=== PATIENT | male | born 1950 | race Caucasian/White ===

== ENCOUNTER 2019-09-04 07:20 | Inpatient (IN) | payer BC, OTHER, MEDICARE ==
[2019-08-30 12:32] LABS: BASOPHILS # (AUTO) 0.1 (0.0-0.1); BASOPHILS % 0.8 % (0.0-1.0); EOSINOPHILS # (AUTO) 0.2 (0.0-0.4); EOSINOPHILS % 3.6 % (0.0-6.0); HEMATOCRIT 39.6 % (38.2-49.6); HEMOGLOBIN 13.1 g/dL (14.0-18.0); LYMPHOCYTES # (AUTO) 1.3 (1.0-3.2); LYMPHOCYTES % 20.4 % (18.0-39.1); MEAN CORPUSCULAR HEMOGLOBIN 29.1 pg (28-32); MEAN CORPUSCULAR HGB CONC 33.1 g/dL (31-35); MONOCYTES # (AUTO) 0.7 (0.2-0.8); MONOCYTES % 10.3 % (4.4-11.3); NEUTROPHILS # (AUTO) 4.2 (2.1-6.9); NEUTROPHILS % 64.6 % (38.7-80.0); PLATELET COUNT 270 x10e3/uL (140-360); RED CELL DISTRIBUTION WIDTH 13.5 % (11.7-14.4)
--- NOTE | 2019-08-30 12:49 | Diagnostic Imaging Report ---
X-ray chest PA and lateral Comparison: None History: Preop Findings: Central airways unremarkable. Heart size normal. Atherosclerotic but otherwise normal caliber aorta. Slight blunting of the right costophrenic angle but no definite large pleural effusion. No pneumothorax. Linear opacity right lung apex likely represents right apical lung scar. No acute focal lung disease. Low flat diaphragms. Degenerative changes of the thoracic spine. Impression: No acute cardiopulmonary disease. Possible emphysema. Signed by: Srinivas Tse MD on 08/30/2019 12:46 PM
[2019-08-30 12:59] LABS: BLOOD UREA NITROGEN 9 mg/dL (7-26); BUN/CREATININE RATIO 10 (6-25); CALCIUM 9.1 mg/dL (8.4-10.2); CARBON DIOXIDE 26 mmol/L (22-29); CHLORIDE 95 mmol/L (98-107); CREATININE, SERUM 0.93 mg/dL (0.72-1.25); EST GLOMERULAR FILTRATION RATE > 60 ML/MIN (60-); GLUCOSE 87 mg/dL (74-118); SODIUM 131 mmol/L (136-145)
[~2019-09-04] VITALS: Ht 165.1 cm; Wt 63.5 kg
[~2019-09-04 07:20] MED LIST: ECOTRIN81 MG PO; FLOMAX0.4 MG PO; LIPITOR20 MG PO; LISINOPRIL-HCT1 EAC1 PO; PROVENTIL HFA6.7 GM INH; STIOLTO RESPIMAT4 GM INH
[2019-09-04] MEDS ORDERED: GENTAMICIN 80MG/NS 100 ML 200 ML IV ONE (07:34)
[2019-09-04] MEDS ORDERED: SODIUM CHLORIDE 0.9% 1000ML 1,000 ML ONE (07:34)
[2019-09-04] MEDS ORDERED: PIPER-TAZ 3.375 GM 50 ML ONE (07:34)
[2019-09-04] MEDS ORDERED: B&O 60MG R/S 60 MG SUPP PR ONE (10:39)
[2019-09-04] MEDS ORDERED: IOPAMIDOL 300MG/ML 50ML INFUS..BTL IV ONE (10:39)
[2019-09-04] MEDS ORDERED: SUGAMMADEX SODIUM 200 MG/2 ML VIAL IV ONE (12:36)
[2019-09-04] MEDS ORDERED: FENTANYL CITRATE/PF 100MCG/2 ML INJ ONE ×2 (12:59→15:48)
[2019-09-04] MEDS ORDERED: ACETAMINOPHEN/CODEINE 300MG - 30MG TAB PO PRN (13:00)
[2019-09-04] MEDS ORDERED: B&O 60MG R/S 60 MG SUPP PR PRN (13:00)
[2019-09-04] MEDS ORDERED: PHENAZOPYRIDINE HCL 100 MG TAB PO PRN (13:00)
[2019-09-04 14:20] LABS: BASOPHILS % 0.4 % (0.0-1.0); EOSINOPHILS # (AUTO) 0.1 (0.0-0.4); EOSINOPHILS % 0.6 % (0.0-6.0); HEMATOCRIT 36.4 % (38.2-49.6); HEMOGLOBIN 11.9 g/dL (14.0-18.0); LYMPHOCYTES # (AUTO) 0.6 (1.0-3.2); LYMPHOCYTES % 5.5 % (18.0-39.1); MEAN CORPUSCULAR HEMOGLOBIN 29.7 pg (28-32); MEAN CORPUSCULAR HGB CONC 32.7 g/dL (31-35); MEAN CORPUSCULAR VOLUME 90.8 fL (81-99); MONOCYTES # (AUTO) 0.3 (0.2-0.8); MONOCYTES % 2.5 % (4.4-11.3); NEUTROPHILS # (AUTO) 10.1 (2.1-6.9); NEUTROPHILS % 90.6 % (38.7-80.0); PLATELET COUNT 195 x10e3/uL (140-360); RED BLOOD COUNT 4.01 x10e6/uL (4.3-5.7); RED CELL DISTRIBUTION WIDTH 13.6 % (11.7-14.4)
[2019-09-04 14:41] LABS: ANION GAP 11.2 mmol/L (8-16); BLOOD UREA NITROGEN 10 mg/dL (7-26); BUN/CREATININE RATIO 10 (6-25); CALCIUM 7.9 mg/dL (8.4-10.2); CARBON DIOXIDE 22 mmol/L (22-29); CHLORIDE 101 mmol/L (98-107); CREATININE, SERUM 0.98 mg/dL (0.72-1.25); EST GLOMERULAR FILTRATION RATE > 60 ML/MIN (60-); GLUCOSE 137 mg/dL (74-118); POTASSIUM 4.2 mmol/L (3.5-5.1); SODIUM 130 mmol/L (136-145)
[2019-09-04] MEDS ORDERED: MIDAZOLAM HCL 2 MG/2 ML VIAL ONE (15:48)
[2019-09-04 17:12] VITALS: BP 120/62
--- NOTE | 2019-09-04 17:12 | NUR ---
pt arrived to room 102; pt awake, alert, no signs of distress.
[2019-09-04] MEDS ORDERED: ACETAMINOPHEN 1000 MG/100 ML IV PRN (18:00)
[2019-09-04] MEDS: SOD CHL 0.45%/POT CHL 20MEQ 1,000 ML IV SCH ×2 (18:01→21:00)
[2019-09-04] MEDS: PIPERACILLIN/TAZO 2.25 GM 50 ML IV SCH (18:01)
[2019-09-04] MEDS: DOCUSATE SODIUM 100 MG CAP PO SCH (18:01)
[2019-09-04 18:05] VITALS: BP 120/62
[2019-09-04] MEDS ORDERED: EPHEDRINE SULFATE INJ 50 MG/ML VIAL ONE (18:47)
[2019-09-04] MEDS ORDERED: SEVOFLURANE INHAL SOLN 250 ML PEN BTL ONE (18:47)
[2019-09-04] MEDS ORDERED: PROPOFOL IV EMULSION 10 MG/ML 20 ML VIAL ONE (18:47)
[2019-09-04] MEDS ORDERED: DEXAMETHASONE SOD PHOS INJ 4 MG/ML VIAL ONE (18:47)
[2019-09-04] MEDS ORDERED: NEOSTIGMINE 1 MG/ML 10ML VIAL ONE (18:47)
[2019-09-04] MEDS ORDERED: GLYCOPYRROLATE INJ 0.2 MG/ML VIAL ONE (18:47)
[2019-09-04] MEDS ORDERED: ROCURONIUM BROMIDE 10 MG/ML 5ML VIAL IV ONE (18:47)
[2019-09-04] MEDS ORDERED: ONDANSETRON HCL INJ 2MG/ML 2ML 2 MG/ML VIAL ONE (18:47)
--- NOTE | 2019-09-04 19:00 | NUR ---
change of shift report given to PM nurse. pt in stable condition.
[2019-09-04 20:00] VITALS: BP 132/81
[2019-09-04 21:27] VITALS: BP 132/81
[2019-09-05] VITALS (8 sets, daily range): BP systolic 107–148; BP diastolic 61–76
[2019-09-05] MEDS: SOD CHL 0.45%/POT CHL 20MEQ 1,000 ML IV SCH (03:26)
[2019-09-05 04:42] LABS: BASOPHILS % 0.1 % (0.0-1.0); EOSINOPHILS % 0.1 % (0.0-6.0); HEMATOCRIT 34.1 % (38.2-49.6); HEMOGLOBIN 11.3 g/dL (14.0-18.0); LYMPHOCYTES # (AUTO) 0.6 (1.0-3.2); MEAN CORPUSCULAR HEMOGLOBIN 29.1 pg (28-32); MEAN CORPUSCULAR HGB CONC 33.1 g/dL (31-35); MEAN CORPUSCULAR VOLUME 87.9 fL (81-99); MONOCYTES % 8.2 % (4.4-11.3); NEUTROPHILS # (AUTO) 10.6 (2.1-6.9); NEUTROPHILS % 86.1 % (38.7-80.0); PLATELET COUNT 232 x10e3/uL (140-360); RED BLOOD COUNT 3.88 x10e6/uL (4.3-5.7); RED CELL DISTRIBUTION WIDTH 13.8 % (11.7-14.4)
[2019-09-05 05:04] LABS: ANION GAP 13.7 mmol/L (8-16); BLOOD UREA NITROGEN 9 mg/dL (7-26); BUN/CREATININE RATIO 10 (6-25); CALCIUM 8.6 mg/dL (8.4-10.2); CARBON DIOXIDE 26 mmol/L (22-29); CHLORIDE 95 mmol/L (98-107); CREATININE, SERUM 0.91 mg/dL (0.72-1.25); EST GLOMERULAR FILTRATION RATE > 60 ML/MIN (60-); GLUCOSE 116 mg/dL (74-118); POTASSIUM 4.7 mmol/L (3.5-5.1); SODIUM 130 mmol/L (136-145)
[2019-09-05] MEDS: ONDANSETRON HCL INJ 2MG/ML 2ML 2 MG/ML VIAL IV PRN ×2 (05:07→07:53)
[2019-09-05] MEDS: PIPERACILLIN/TAZO 2.25 GM 50 ML IV SCH ×3 (05:07→21:33)
[2019-09-05] MEDS: DOCUSATE SODIUM 100 MG CAP PO SCH ×2 (08:34→16:08)
[2019-09-05] MEDS ORDERED: ONDANSETRON HCL INJ 2MG/ML 2ML 2 MG/ML VIAL IV PRN (09:00)
[2019-09-05] MEDS ORDERED: ALBUTEROL/IPRATROPIUM 3 ML NEB NEB PRN (09:00)
--- NOTE | 2019-09-05 09:27 | History and Physical ---
REASON FOR ADMISSION: The patient admitted after TURP procedure. The patient has baseline COPD, hypertension. HISTORY OF PRESENT ILLNESS: The patient is a 69-year-old male, status post TURP. The patient is getting continuous urinary bladder irrigation. The patient is otherwise comfortable except for some indigestion. The patient does have hypertension and COPD. He also has dyslipidemia. The patient had a PSA that was 11.4 prior to his surgery. Prostate biopsy was done. The patient is otherwise stable at this time. PAST MEDICAL HISTORY: 1. Enlarged prostate. 2. Hypertension. 3. Dyslipidemia. 4. COPD, on an inhaler. 5. Elevated PSA. PAST SURGICAL HISTORY: 1. Status post TURP. 2. Tonsillectomy. 3. Hiatal hernia repair. 4. Eye surgeries. SOCIAL HISTORY: The patient is a smoker. No alcohol consumption. No recreational drugs. ALLERGIES: NO KNOWN ALLERGIES. HOME MEDICATIONS: 1. Proventil. 2. Aspirin. 3. Lipitor. 4. Lisinopril. 5. HCTZ. 6. Flomax. 7. Respimat. PHYSICAL EXAMINATION: VITAL SIGNS: Temperature is 98, blood pressure 107/67, pulse rate 70, respirations 20. GENERAL: The patient is not in acute distress. He is awake. HEENT: Normocephalic and atraumatic. Anicteric. NECK: Supple grossly. PULMONARY: Diminished breath sounds with some rhonchi. CARDIOVASCULAR: S1, S2. Regular rate and rhythm. ABDOMEN: Soft, nontender, non-distention. EXTREMITIES: No gross cyanosis or edema. NEUROLOGIC: No gross focal deficit. The patient has a Carmen catheter in place. The patient is getting continuous urinary bladder irrigation. Hematuria, improving. IMPRESSION: 1. Status post transurethral resection of prostate. 2. Elevation of prostate-specific antigen. 3. Baseline enlarged prostate and urinary retention. 4. Baseline chronic obstructive pulmonary disease. 5. Hypertension. 6. Dyslipidemia. PLAN: Resume home medication. Nebulizer treatment. For indigestion, Maalox. Continue with urinary bladder irrigation. Continue with current medication. We will continue with antibiotics postop. SCD. We will follow up on the patient's status. Incentive spirometry. MD MICHAEL Blake/MODL :46:37 /[id number]
[2019-09-05] MEDS ORDERED: ALBUTEROL SULFATE HFA 8GM INHALATION AEROSOL INH PRN (10:00)
[2019-09-05] MEDS: [UNRECOGNIZED DRUG - OTHER] INH SCH ×2 (10:15→20:10)
[2019-09-05] MEDS: TIOTROPIUM BR INH SCH ×2 (10:15→20:10)
[2019-09-05] MEDS: OLODATEROL HCL INH SCH ×2 (10:15→20:10)
[2019-09-05] MEDS: SODIUM CHLORIDE 0.9% 1000ML 1,000 ML IV SCH ×2 (11:02→20:47)
[2019-09-05] MEDS: LISINOPRIL 20 MG TAB PO SCH (11:02)
[2019-09-05] MEDS: HYDROCHLOROTHIAZIDE 25 MG TAB PO SCH (11:02)
[2019-09-05] MEDS: TAMSULOSIN HCL 0.4 MG CAP PO SCH ×2 (11:02→16:08)
[2019-09-05] MEDS: MAGNESIUM/ALUMINUM/SIMETHICONE 30 ML UDC PO PRN ×2 (16:04→21:33)
[2019-09-05] MEDS: ATORVASTATIN 40 MG TAB PO SCH (20:48)
[2019-09-05] MEDS: DIPHENHYDRAMINE HCL 25 MG CAP PO PRN (20:48)
[2019-09-06] VITALS (7 sets, daily range): BP systolic 102–124; BP diastolic 60–70
[2019-09-06 05:00] LABS: BASOPHILS % 0.2 % (0.0-1.0); EOSINOPHILS % 0.1 % (0.0-6.0); HEMATOCRIT 32.7 % (38.2-49.6); HEMOGLOBIN 11.1 g/dL (14.0-18.0); LYMPHOCYTES # (AUTO) 0.9 (1.0-3.2); LYMPHOCYTES % 6.4 % (18.0-39.1); MEAN CORPUSCULAR HEMOGLOBIN 30.2 pg (28-32); MEAN CORPUSCULAR HGB CONC 33.9 g/dL (31-35); MEAN CORPUSCULAR VOLUME 88.9 fL (81-99); MONOCYTES # (AUTO) 1.3 (0.2-0.8); MONOCYTES % 9.8 % (4.4-11.3); NEUTROPHILS # (AUTO) 11.2 (2.1-6.9); NEUTROPHILS % 83.1 % (38.7-80.0); PLATELET COUNT 242 x10e3/uL (140-360); RED BLOOD COUNT 3.68 x10e6/uL (4.3-5.7); RED CELL DISTRIBUTION WIDTH 13.7 % (11.7-14.4)
[2019-09-06] MEDS: MAGNESIUM/ALUMINUM/SIMETHICONE 30 ML UDC PO PRN (05:07)
[2019-09-06] MEDS: PIPERACILLIN/TAZO 2.25 GM 50 ML IV SCH ×3 (05:12→21:22)
[2019-09-06 05:23] LABS: ANION GAP 11.8 mmol/L (8-16); BLOOD UREA NITROGEN 11 mg/dL (7-26); BUN/CREATININE RATIO 10 (6-25); CALCIUM 8.4 mg/dL (8.4-10.2); CARBON DIOXIDE 30 mmol/L (22-29); CHLORIDE 91 mmol/L (98-107); CREATININE, SERUM 1.05 mg/dL (0.72-1.25); EST GLOMERULAR FILTRATION RATE > 60 ML/MIN (60-); GLUCOSE 106 mg/dL (74-118); POTASSIUM 3.8 mmol/L (3.5-5.1); SODIUM 129 mmol/L (136-145)
[2019-09-06] MEDS: SODIUM CHLORIDE 0.9% 1000ML 1,000 ML IV SCH (06:54)
[2019-09-06] MEDS: OLODATEROL HCL INH SCH ×2 (07:00→19:00)
[2019-09-06] MEDS: [UNRECOGNIZED DRUG - OTHER] INH SCH ×2 (07:00→19:00)
[2019-09-06] MEDS: TIOTROPIUM BR INH SCH ×2 (07:00→19:00)
[2019-09-06] MEDS: LISINOPRIL 20 MG TAB PO SCH (08:21)
[2019-09-06] MEDS: HYDROCHLOROTHIAZIDE 25 MG TAB PO SCH (08:21)
[2019-09-06] MEDS: DOCUSATE SODIUM 100 MG CAP PO SCH ×2 (08:21→16:44)
[2019-09-06] MEDS: TAMSULOSIN HCL 0.4 MG CAP PO SCH ×2 (08:21→16:44)
[2019-09-06] MEDS ORDERED: MAGNESIUM/ALUMINUM/SIMETHICONE 30 ML UDC PO PRN (09:00)
[2019-09-06] MEDS ORDERED: MAGNESIUM/ALUMINUM/SIMETHICONE 30 ML UDC PO ONE (09:45)
[2019-09-06] MEDS: FAMOTIDINE 20 MG/2 ML VIAL IV SCH ×2 (09:56→16:44)
--- NOTE | 2019-09-06 18:59 | NUR ---
WALKING ROUNDS PERFORMED, RECEIVED PT LAYING SEMI FOWLERS IN BED, AAOX3, RR EVEN AND NON-LABORED, ON ROOM AIR. NO S/SX OF DISTRESS NOTED. LEFT PT LAYING SEMI FOWLERS IN BED, BED IN LOW LOCKED POSITION, SIDE RAILS UPX2, CALL LIGHT AND PHONE WITHIN REACH.
--- NOTE | 2019-09-06 21:20 | NUR ---
TA CATHETER CARE PERFORMED WITH X3 CASTILE SOAP WIPES FOR CAUTI PREVENTION.
[2019-09-06] MEDS: ATORVASTATIN 40 MG TAB PO SCH (21:21)
[2019-09-06] MEDS: DIPHENHYDRAMINE HCL 25 MG CAP PO PRN (21:26)
[2019-09-07] VITALS: BP 115/63
[2019-09-07 04:00] VITALS: BP 113/65
[2019-09-07 05:05] LABS: BASOPHILS # (AUTO) 0.1 (0.0-0.1); BASOPHILS % 0.5 % (0.0-1.0); EOSINOPHILS # (AUTO) 0.2 (0.0-0.4); EOSINOPHILS % 1.3 % (0.0-6.0); HEMATOCRIT 30.5 % (38.2-49.6); HEMOGLOBIN 10.3 g/dL (14.0-18.0); LYMPHOCYTES # (AUTO) 1.1 (1.0-3.2); LYMPHOCYTES % 8.3 % (18.0-39.1); MEAN CORPUSCULAR HEMOGLOBIN 29.8 pg (28-32); MEAN CORPUSCULAR HGB CONC 33.8 g/dL (31-35); MEAN CORPUSCULAR VOLUME 88.2 fL (81-99); MONOCYTES # (AUTO) 1.4 (0.2-0.8); MONOCYTES % 10.7 % (4.4-11.3); NEUTROPHILS # (AUTO) 10.2 (2.1-6.9); NEUTROPHILS % 78.5 % (38.7-80.0); PLATELET COUNT 203 x10e3/uL (140-360); RED BLOOD COUNT 3.46 x10e6/uL (4.3-5.7); RED CELL DISTRIBUTION WIDTH 13.9 % (11.7-14.4)
[2019-09-07 05:23] LABS: ANION GAP 11.7 mmol/L (8-16); BLOOD UREA NITROGEN 11 mg/dL (7-26); BUN/CREATININE RATIO 12 (6-25); CALCIUM 7.8 mg/dL (8.4-10.2); CARBON DIOXIDE 27 mmol/L (22-29); CHLORIDE 92 mmol/L (98-107); CREATININE, SERUM 0.94 mg/dL (0.72-1.25); EST GLOMERULAR FILTRATION RATE > 60 ML/MIN (60-); GLUCOSE 91 mg/dL (74-118); POTASSIUM 3.7 mmol/L (3.5-5.1); SODIUM 127 mmol/L (136-145)
[2019-09-07] MEDS: PIPERACILLIN/TAZO 2.25 GM 50 ML IV SCH (05:43)
[2019-09-07] MEDS: OLODATEROL HCL INH SCH (07:00)
[2019-09-07] MEDS: TIOTROPIUM BR INH SCH (07:00)
[2019-09-07] MEDS: [UNRECOGNIZED DRUG - OTHER] INH SCH (07:00)
[2019-09-07 08:02] VITALS: BP 107/63
[2019-09-07 08:24] VITALS: BP 107/63
[2019-09-07] MEDS: FAMOTIDINE 20 MG/2 ML VIAL IV SCH (08:30)
[2019-09-07] MEDS: DOCUSATE SODIUM 100 MG CAP PO SCH (08:30)
[2019-09-07] MEDS: TAMSULOSIN HCL 0.4 MG CAP PO SCH (08:30)
[2019-09-07 11:42] VITALS: BP 128/68
[2019-09-07] MEDS ORDERED: COLACE100 MG PO (15:06)
[2019-09-07] MEDS ORDERED: ZOFRAN8 MG PO (15:06)
[2019-09-07] MEDS ORDERED: MAALOX MAXIMUM355 ML PO (15:07)
[2019-09-07] MEDS ORDERED: LEVOFLOXACIN250 MG PO (15:08)
[2019-09-07] MEDS ORDERED: TYLENOL # 31 EA PO (15:08)
--- NOTE | 2019-09-07 15:12 | NUR ---
pt catheter changed to leg bag. way care and ayaka care taught to pt.
--- NOTE | 2019-09-07 20:48 | Discharge Summary ---
TILE DITCHER: Dr. Gonzalez Gruber. FINAL DIAGNOSES: 1. Status post TURP. 2. Status post prostate biopsy. 3. Resolved leukocytosis. 4. Hypertension, stable. 5. Reflux history. SUMMARY: The patient is a 69-year-old male, came into the hospital after a TURP procedure. The patient required continuous urinary bladder irrigation. The patient did better. On admission, the patient is post TURP procedure. His WBC is trending upward from 11,000 to 12,000, to 13,000. Today, however, it is trending down at 12.9 thousand. The patient is otherwise stable. The patient is comfortable. He has been ambulatory, able to eat and have bowel movement. The patient's pathology on the prostate biopsy on showed no malignancy tissue. The patient is stable. He will be going home today with a Carmen catheter. A Carmen catheter to leg will be given. The patient will continue with his home medication. Medication for reflux and GERD. He will take Tylenol No.3 for pain and Levaquin 250 mg daily for 7 days. The patient to follow up with Dr. Gonzalez Gruber as per his instruction. The patient is stable at this time, discharge today. MD MICHAEL Blake/EVELYN /[id number]
--- OUTSIDE RECORDS SUMMARY | 2019-09-20 11:45 | XMS REPORT | Continuity of Care Document ---
Author Author [facility] t Organization [facility] Address [address] [place] [address] Phone Unavailable Care Team Providers Care Building Maintenance Worker Name Role Phone NO, PCP PCP Unavailable HAMPEL, JOHNSON Attphys Unavailable Payers Payer Name Policy Type Policy Number Effective Date Expiration Date Kristy Fox [place] [id number] 2019 00:00:00 [facility] Ppo [id number] 2019 00:00:00 [facility] Medicare A & B [id number] 2014 00:00:00 [facility] Cdc Review Covid19 [id number] [facility] Problems Condition Name Condition Details Condition Category Status Onset Date Resolution Date Last Treatment Date Treating Clinician Comments Source Problem Condition Active [facility] Allergies, Adverse Reactions, Alerts Allergy Name Allergy Type Status Severity Reaction(s) Onset Date Inacti ve Date Treating Clinician Comments Source No Known Allergies DA Active U 2016-05-18 00:00:00 [facility] Social History Social Habit Start Date Stop Date Quantity Comments Source Sex Assigned At 1950 00:00:00 1950 00:00:00 Male [facility] Medications Ordered Medication Name Filled Medication Name Start Date Stop Da te Current Medication? Ordering Clinician Indication Dosage Frequency Signature (SIG) Comments Components Source Acetaminophen/Codeine Phosphate (Tylenol # 3*) 1 Ea TA B Acetaminophen/Codeine Phosphate (Tylenol # 3*) 1 Ea TAB Yes Every 4 Hours as needed for Moderate Pain (4-6) [facility] Albuterol Sulfate (Proventil Hfa) 6.7 Gm HFA.AER.AD Al buterol Sulfate (Proventil Hfa) 6.7 Gm HFA.AER.AD Yes 2 A s Needed as needed for Shortness Of Breath [facility] Atorvastatin Calcium (Lipitor) 20 Mg TABLET Atorvastat in Calcium (Lipitor) 20 Mg TABLET Yes 80 Bedtime [facility] Docusate Sodium (Colace) 100 Mg CAP Docusate Sodium (Colace) 100 Mg C AP Yes 100 Twice A Day [facility] Levofloxacin Levofloxacin Yes 250 Daily [facility] Lisinopril/Hydrochlorothiazide (Lisinopril-Hctz 20-25 Mg Tab) 1 Each TABLET Lisinopril/Hydrochlorothiazide (Lisinopril-Hctz 20-25 Mg Tab) 1 Each TABLET Yes 1 Daily [facility] Mag Hydrox/Al Hydrox/Simeth (Maalox Maximum Strength S long term) 355 Ml ORAL.SUSP Mag Hydrox/Al Hydrox/Simeth (Maalox Maximum Strength Susp) 355 Ml ORAL.SUSP Yes 30 Every 6 Hours for Indigestion [facility] Ondansetron Hcl (Zofran) 8 Mg TABLET Ondansetron Hcl (Zofran) 8 Mg TABLET Yes Every 4 Hours as needed for Nausea [facility] Tamsulosin Hcl (Flomax*) 0.4 Mg CAP Tamsulosin Hcl (Flomax*) 0.4 Mg C AP Yes .4 Twice A Day [facility] Tiotropium Br/Olodaterol Hcl (Stiolto Respimat Inhal S pray) 4 Gm MIST.INHAL Tiotropium Br/Olodaterol Hcl (Stiolto Respimat Inhal Destrehan) 4 Gm MIST.INHAL Yes 1 Twice A Day [facility] Aspirin (Ecotrin) 81 Mg TABLET. Aspirin (Ecotrin) 81 Mg TABLET . 2019-09-07 00:00:00 No 81 Daily [facility] Vital Signs Vital Name Observation Time Observation Value Comments Source Body Temperature 2019-09-07 11:42:00 98.1 [degF] [facility] BMI (Body Mass Index) 2019-09-07 00:26:00 23.3 kg/m2 [facility] Weight 2019-09-04 17:12:00 140 [lb_av] [facility] Procedures Procedure Date / Time Performed Performing Clinician Dangelo chairez Ultrasound of prostate with transrectal approach 2019-09-04 00:0 0:00 [facility] Intraoperative ultrasound 2019-09-04 00:00:00 [facility] X-ray of chest, two views 2019-08-30 00:00:00 [facility] Plan of Care Planned Activity Planned Date Details Comments Source Instructions TURP [facility] Encounters Start Date/Time End Date/Time Encounter Type Admission Type [facility] Care Department Encounter ID Source 2019-09-04 12:53:00 2019-09-07 15:47:00 Discharged Inpatient 3 JOHNSON BUSTOS [facility] [id number] [facility] Results Test Description Test Time Test Comments Results Result Comments Source Blood leukocytes automated count (number/volume) 2019-09-07 04:55:00 Test Item White Blood Count (test code = 6690-2) 12.94 4.8-10.8 [facility] automated count (number/volume)2019-09-07 04:55:00* Test Item Value Reference Range Interpretation Comments Red Blood Count (test code = 789-8) 3.46 4.3-5.7 [facility] hemoglobin measurement (moles/volume)2019-09-07 04:55:00* Test Item Value Reference Range Interpretation Comments Hemoglobin (test code = 76184-3) 10.3 14.0-18.0 [facility] Center[facility]ated blood hematocrit (volume fraction)2019-09-07 04:55:00* Test Item Value Reference Range Interpretation Comments Hematocrit (test code = 4544-3) 30.5 38.2-49.6 [facility] CenterAutomated erythrocyte mean corpuscular [id number] 04:55:00* Test Item Value Reference Range Interpretation Comments Mean Corpuscular Volume (test code = 787-2) 88.2 81-99 [facility] CenterAutomated erythrocyte mean corpuscular hemoglobin (mass per erythrocyte)2019-09-07 04:55:00* Test Item Value Reference Range Interpretation Comments Mean Corpuscular Hemoglobin (test code = 785-6) 29.8 28-32 [facility] CenterAutomated erythrocyte mean corpuscular hemoglobin concentration measurement (mass/volume)2019-09-07 04:55:00* Test Item Value Reference Range Interpretation Comments Mean Corpuscular Hemoglobin Concent (test code = 786-4) 33.8 31-35 [facility] CenterRDW [id number]-[id number] 04:55:00* Test Item Value Reference Range Interpretation Comments Red Cell Distribution Width (test code = 27801-3) 13.9 11.7 -14.4 [facility] CenterAutomated blood platelet count (count/volume)2019-09-07 04:55:00* Test Item Value Reference Range Interpretation Comments Platelet Count (test code = 777-3) 203 140-360 [facility] CenterAutpsychiatric hospitaled blood segmented neutrophil count as percentage of total oldtpzwmtf4695-28-86 04:55:00* Test Item Value Reference Range Interpretation Comments Neutrophils (%) (Auto) (test code = 86063-9) 78.5 38.7-80.0 [facility] CenterAutomated blood lymphocyte count as percentage ot total sjhryoozmt1943-08-11 04:55:00* Test Item Value Reference Range Interpretation Comments Lymphocytes (%) (Auto) (test code = 736-9) 8.3 18.0-39.1 [facility] CenterAutomated blood monocyte count as percentage of total jscwpkwfun9699-17-17 04:55:00* Test Item Value Reference Range Interpretation Comments Monocytes (%) (Auto) (test code = 5905-5) 10.7 4.4-11.3 [facility] CenterAutomated blood eosinophil count as percentage of total jqodzodeyh7567-72-64 04:55:00* Test Item Value Reference Range Interpretation Comments Eosinophils (%) (Auto) (test code = 713-8) 1.3 0.0-6.0 [facility] CenterAutomated blood basophil count as percentage of total ovzjttqfhk1764-79-53 04:55:00* Test Item Value Reference Range Interpretation Comments Basophils (%) (Auto) (test code = 706-2) 0.5 0.0-1.0 [facility] CenterFluoroscopic procedure less than one hour [id number] 04:55:00* Test Item Value Reference Range Interpretation Comments IM GRANULOCYTES % (test code = IM GRANULOCYTES %) 0.7 0.0- 1.0 [facility] CenterAutomated blood neutrophil count 2019-09-07 04:55:00* Test Item Value Reference Range Interpretation Comments Neutrophils # (Auto) (test code = 751-8) 10.2 2.1-6.9 [facility] CenterBlood lymphocytes count (number/volume) 2019-09-07 04:55:00* Test Item Value Reference Range Interpretation Comments Lymphocytes # (Auto) (test code = 05863-7) 1.1 1.0-3.2 [facility] CenterBlood monocytes automated count (number/volume)2019-09-07 04:55:00* Test Item Value Reference Range Interpretation Comments Monocytes # (Auto) (test code = 742-7) 1.4 0.2-0.8 [facility] CenterAutomated blood eosinophil count 2019-09-07 04:55:00* Test Item Value Reference Range Interpretation Comments Eosinophils # (Auto) (test code = 711-2) 0.2 0.0-0.4 [facility] CenterAutomated blood basophil count (count/volume)2019-09-07 04:55:00* Test Item Value Reference Range Interpretation Comments Basophils # (Auto) (test code = 704-7) 0.1 0.0-0.1 [facility] CenterFluoroscopic procedure less than one hour [id number] 04:55:00* Test Item Value Reference Range Interpretation Comments Absolute Immature Granulocyte (auto (farhad t code = Absolute Immature Granulocyte (auto) 0.09 0-0.1 [facility] sodium measurement (moles/volume)2019-09-07 04:55:00* Test Item Value Reference Range Interpretation Comments Sodium Level (test code = 2951-2) 127 136-145 [facility] plasma potassium measurement (moles/volume)2019-09-07 04:55:00* Test Item Value Reference Range Interpretation Comments Potassium Level (test code = 2823-3) 3.7 3.5-5.1 [facility] plasma chloride measurement (moles/volume)2019-09-07 04:55:00* Test Item Value Reference Range Interpretation Comments Chloride Level (test code = 2075-0) 92 98-107 [facility] or plasma carbon dioxide, total measurement (moles/volume)2019-09-07 04:55:00* Test Item Value Reference Range Interpretation Comments Carbon Dioxide Level (test code = 2028-9) 27 22-29 [facility] or plasma anion [id number] 04:55:00* Test Item Value Reference Range Interpretation Comments Anion Gap (test code = 25754-1) 11.7 8-16 [facility] plasma urea nitrogen measurement (mass/volume)2019-09-07 04:55:00* Test Item Value Reference Range Interpretation Comments Blood Urea Nitrogen (test code = 3094-0) 11 7-26 [facility] plasma creatinine measurement (mass/volume)2019-09-07 04:55:00* Test Item Value Reference Range Interpretation Comments Creatinine (test code = 2160-0) 0.94 0.72-1.25 [facility] plasma urea nitrogen/creatinine mass ldzjj6194-09-18 04:55:00* Test Item Value Reference Range Interpretation Comments BUN/Creatinine Ratio (test code = 3097-3) 12 08-14 [facility] CenterEstimated glomerular filtration rate (GFR) szmfkmqtorjia2156-73-66 04:55:00* Test Item Value Reference Range Interpretation Comments Estimat Glomerular Filtration Rate (test code = 467941295) > 60 >60 Ranges were taken from the National Kidney Disease Education Program and the [facility] literature.Reference ranges:60 or greater: Rmtiqq71-52 ( for 3 consecutive months): Chronic kidney disease 15 or less: Kidney failureCHRISTUS [facility] – Medical CenterGlucose qqmzjkzqxiq7528-63-30 04:55:00* Test Item Value Reference Range Interpretation Comments Glucose Level (test code = IQW5851) 91 74-118 [facility] plasma calcium measurement (mass/volume)2019-09-07 04:55:00* Test Item Value Reference Range Interpretation Comments Calcium Level (test code = 10289-1) 7.8 8.4-10.2 [facility] plasma magnesium measurement (mass/volume)2019-09-04 14:00:00* Test Item Value Reference Range Interpretation Comments Magnesium Level (test code = 10144-5) 1.6 1.3-2.1 [facility] CenterCHEST 2 HQCKX0630-82-10 12:42:00 [facility] [address] [address] Patient Name: ENID GOVEA MR #: [id number] : 1950 Age/Sex: 69/M Req #: [id number] Adm Physician: Ordered by: JOHNSON BUSTOS MD Report #: [id number] Location: OR Room/Bed: Procedure: [id number] DX/CHEST 2 VIEWS Exa m Date: 08/30/19 Exam Time: 1154 REPORT STATUS: Signed X-ray chest PA and lateral Comparison: None History: Preop Findings: Central airways unremarkab le. Heart size normal. Atherosclerotic but otherwise normal caliber aorta. Sli ght blunting of the right costophrenic angle but no definite large pleural eff usion. No pneumothorax. Linear opacity right lung apex likely represents right apical lung scar. No acute focal lung disease. Low flat diaphragms. Degenerat fede changes of the thoracic spine. Impression: No acute cardiopulmonary dis ease. Possible emphysema. Signed by: Farida Pastor MD on 08/30/2019 12:46 P M Dictated By: FARIDA PASTOR MD 1246 Transcribed By: REID on 08/30/19 1246 COPY TO: JOHNSON BUSTOS MD Fluoroscopic procedure less than one hour duration 2019-08-30 12:35:00* Test Item Value Reference Range Interpretation Comments Coronavirus (PCR) (test code = Coronavirus (PCR)) NOT DETECTED NOTD ETECTED [employer] Aptima SARS-CoV-2 assay is a nucleic amplification test intended for the qualitative detection of RNA from SARS-CoV-2 from nasopharyngeal (FAILURE ANALYSIS TECHNICIAN) specimens . It is used under Emergency Use Authorization (EUA) by FDA.A positive result is indicative of the presence of SARS-CoV-2 RNA. Clinical correlation with patient history and other diagnostic information is necessary to determine patient infe ction status.A negative (Not Detected) result does not preclude SARS-CoV-2 infec tion. Clinical Correlation with patient history and other diagnostic information should be used in patient management decisions.Invalid: Unable to generate a va lid result on this specimen. Please submit a new specimen for reprat testing oc clinically indicated.Tesing performed by:[facility] [address] [place] [address] [id number], Dexter Gómez MD, PhD [facility]
--- NOTE | 2019-09-23 06:46 | Operative Report ---
DATE OF PROCEDURE: 09/04/2019 SURGEON: Gonzalez Gruber MD PREOPERATIVE DIAGNOSES: 1. Elevated PSA. 2. Obstructive benign prostatic hypertrophy. 3. Incomplete bladder emptying. POSTOPERATIVE DIAGNOSES: 1. Elevated PSA. 2. Obstructive benign prostatic hypertrophy. 3. Incomplete bladder emptying. OPERATIONS PERFORMED: 1. Transrectal ultrasonography interpretation, no radiologist present. 2. Interpretation of ultrasonographic guidance for needle biopsies, no radiologist present. 3. Transrectal needle biopsies of the prostate (separate procedure was performed for the elevated PSA). 4. Cystourethroscopy with bilateral ureteral catheterization and retrograde ureteropyelography (separate procedure was performed for the incomplete bladder emptying). 5. Interpretation of retrograde ureteropyelography. 6. Supervision of fluoroscopy, no radiologist present. 7. Cystourethroscopy with transurethral resection of the prostate utilizing the plasma button electrode. ANESTHESIA: General. COMPLICATIONS: None. CLINICAL SUMMARY: Oscar Horner is a 69-year-old man with the above preoperative diagnoses. He is brought for the above procedures. He has had a history of urinary retention. He is aware of the risks of bleeding, infection, injury to adjacent structures, need for additional procedures and elected to proceed. He is also aware of the risks of retrograde ejaculation, incontinence, and impotence. OPERATIVE PROCEDURE IN DETAIL: Informed consent was verified. Oscar Horner was properly identified, taken to the operating room, placed on the cystoscopy table in supine position. Anesthesia was uneventfully begun. The patient was then carefully gently repositioned in dorsal lithotomy position with all pressure points well padded. Transrectal sonography was performed. Interpretation of transrectal ultrasonography: The patient's prostate is large at 77 mL. The prostate capsule was smooth. There was mild calcifications at the junction between the PZ and the TZ. The seminal vesicles were unremarkable. The prostate capsule was smooth. With ultrasonographic guidance, multiple needle biopsies were taken at each of 6 locations. They were sent in six containers, right versus left and base versus mid versus apex. The patient's genitalia were then prepared and draped in the usual sterile fashion. The cystoscope sheath with visual obturator in place was atraumatically inserted into the patient's urethra. It was guided down the unremarkable urethra through the normal sphincteric region through the prostate bed, which was significant for bilobar prostatic hypertrophy with kissing lateral lobes and visual obstruction. We entered the patient's bladder. Panendoscopy revealed trabeculations, but no tumors, no stones, and no diverticula. Normally positioned and configured ureteral orifices were identified. An 8-Slovak catheter was used to cannulate each ureter and retrograde ureteral pyelograms were performed. Interpretation of retrograde ureteropyelography contrast was instilled in retrograde fashion bilaterally. There were no tumors no stones, and no diverticula. Unobstructed drainage was observed bilaterally fluoroscopically. The cystoscope was withdrawn. The resectoscope was atraumatically placed. We then utilized the plasma button electrode to vaporize the prostate from the bladder neck to maneuver past the verumontanum and down to the surgical capsule. This resulted in a wide open prostatic channel. Pinpoint electrocautery was utilized to achieve hemostasis. The resectoscope was withdrawn. Carmen catheter was placed. It was irrigated to and fro to ensure it worked properly. It was placed in continuous bladder irrigation with clear efflux. A belladonna and opium suppository was placed. The patient had a larger than 50 g prostate, smooth, nonfluctuant, without any nodules. The patient was then uneventfully reversed from anesthesia and taken to recovery room in stable condition. There were no complications during the procedure. He tolerated the procedure well. We will proceed with routine postoperative care and ongoing urological followup. Gonzalez Gruber MD OH/YOLETTEL /[id number]
== END 2019-09-07 15:47 | disposition home or self-care (01) | DRG 713 ==
LOC: OR 07:20 → PACU V 12:53 → MED/SURG 17:13
PROVIDERS: ADMIT Internal Medicine; ATTEND Internal Medicine
PROC: 0VB08ZX Excision of Prostate, Via Natural or Artificial Opening Endoscopic, Diagnostic (ICD-10-PCS; 2019-09-04)
PROC: BT141ZZ Fluoroscopy of Kidneys, Ureters and Bladder using Low Osmolar Contrast (ICD-10-PCS; 2019-09-04)
PROC: 0V508ZZ Destruction of Prostate, Via Natural or Artificial Opening Endoscopic (ICD-10-PCS; principal; 2019-09-04 10:39)
PROC: 0T788ZZ Dilation of Bilateral Ureters, Via Natural or Artificial Opening Endoscopic (ICD-10-PCS; 2019-09-04 10:39)
DX: N40.1 Benign prostatic hyperplasia with lower urinary tract symptoms (principal); E87.0 Hyperosmolality and hypernatremia; N13.8 Other obstructive and reflux uropathy; J44.9 Chronic obstructive pulmonary disease, unspecified; I10 Essential (primary) hypertension; E78.5 Hyperlipidemia, unspecified; F17.200 Nicotine dependence, unspecified, uncomplicated; Z79.82 Long term (current) use of aspirin; Z79.899 Other long term (current) drug therapy; Z11.59 Encounter for screening for other viral diseases; R10.13 Epigastric pain; K21.9 Gastro-esophageal reflux disease without esophagitis; R97.20 Elevated prostate specific antigen [PSA]; R33.8 Other retention of urine
CPT/HCPCS: 36415; 71046; 74420; 76872; 76998; 80048; 83735; 85025; 88305; 93005; C1758; J1100; J1580; J2250; J2405; J2543; J2710; J3010; J7030; U0002